=== PATIENT | female | born 1960 | race African-American/Black ===

== ENCOUNTER 2023-05-27 16:02 | Inpatient (IN) | payer OTHER ==
[2023-05-27 17:10] VITALS: BMI 16.1
[2023-05-27] MEDS ORDERED: guaiFENesin 600 MG TABLET.ER (FP) PO PRN (17:54)
[2023-05-27] MEDS ORDERED: LOPERAMIDE HCL 2 MG CAPSULE PO PRN (17:54)
[2023-05-27] MEDS ORDERED: NALOXONE HCL 0.4 MG/ML VIAL IM PRN (17:54)
[2023-05-27] MEDS ORDERED: MAG HYDROX/AL HYDROX/SIMETH 30 ML UNIT-DOSE CUP PO PRN (17:54)
[2023-05-27] MEDS ORDERED: DICYCLOMINE HCL 10 MG CAPSULE PO PRN (17:54)
[2023-05-27] MEDS ORDERED: BENZOCAINE/MENTHOL (CHLORASEPTIC ) LOZENGE MM PRN (17:54)
[2023-05-27] MEDS ORDERED: NICOTINE POLACRILEX 2 MG LOZENGE BC PRN (17:54)
[2023-05-27] MEDS ORDERED: MAGNESIUM HYDROX 2400MG/30ML ORAL SUSPENSION 30 ML CUP PO PRN (17:54)
[2023-05-27] MEDS ORDERED: ONDANSETRON *ODT* 4 MG TABLET SL PRN (17:54)
[2023-05-27] MEDS ORDERED: NALOXONE HCL (KLOXXADO) 8 MG SPRAY NS PRN (17:54)
[2023-05-27] MEDS ORDERED: BENZONATATE 200 MG CAPSULE PO PRN (17:54)
[2023-05-27] MEDS ORDERED: ACETAMINOPHEN 325 MG TABLET (FP) PO PRN (17:54)
[2023-05-27] MEDS ORDERED: POLYETHYLENE GLYCOL (HEALTHYLAX) 3350 17 GM PACKET PO PRN (17:54)
[2023-05-27] MEDS ORDERED: BISMUTH SUBSALICYLATE 524 MG/30 ML PO PRN (17:54)
[2023-05-27] MEDS ORDERED: IBUPROFEN 400 MG TABLET (FP) PO PRN (17:54)
[2023-05-27] MEDS ORDERED: IBUPROFEN 600 MG TABLET (FP) PO PRN (17:54)
[2023-05-27] MEDS: METHOCARBAMOL 500 MG TABLET PO PRN (22:28)
[2023-05-27] MEDS: MELATONIN 5 MG TABLETS PO SCH (22:28)
[2023-05-27] MEDS: THIAMINE HCL 100 MG TABLET (FP) PO SCH (22:28)
[2023-05-28] MEDS: ALBUTEROL SO4 HFA INHALER IH PRN ×3 (08:30→22:35)
[2023-05-28] MEDS ORDERED: diazePAM 5 MG TABLET PO PRN (08:59)
[2023-05-28] MEDS: PRENATAL VITAMINS W/ FOLIC ACID TABLET (FP) PO SCH (10:26)
[2023-05-28] MEDS: TIOTROPIUM BROMIDE 2.5 MCG (SPIRIVA) RESPIMAT INHALER IH SCH (10:27)
[2023-05-28] MEDS: diazePAM 5 MG TABLET PO SCH ×3 (10:28→22:34)
[2023-05-28 10:45] LABS: CHLORIDE 112 mmol/L (98-107); POTASSIUM 3.8 mmol/L (3.5-5.1); SODIUM 145 mmol/L (136-145)
[2023-05-28 10:53] LABS: HEMOGLOBIN 11.6 GM/dL (10.7-15.3); MCH 32.5 pg (25.7-33.7); MCHC 33.1 g/dl (32.0-36.0); MEAN CELL VOLUME 98.3 fl (80-96); MEAN PLT VOLUME 7.9 fl (7.5-11.1); PLATELET COUNT 322 10^3/uL (134-434); RBC 3.56 M/mm3 (3.60-5.2); RDW 13.6 % (11.6-15.6); WHITE BLOOD COUNT 4.2 K/mm3 (4.0-10.0)
[2023-05-28 10:58] LABS: ALBUMIN 3.2 g/dl (3.4-5.0); ANION GAP 6 mmol/L (4-13); BLOOD UREA NITROGEN 23.5 mg/dL (7-18); CALCIUM 9.3 mg/dL (8.5-10.1); CO2 28 mmol/L (21-32); GLUCOSE,RANDOM 105 mg/dL (74-106)
[2023-05-28 11:00] LABS: SGPT/ALT 25 U/L (13-61)
[2023-05-28 11:02] LABS: BILIRUBIN,TOTAL 0.5 mg/dL (0.2-1); CREATININE 0.6 mg/dL (0.55-1.3); SGOT/AST 29 U/L (15-37); TOT PROT 5.9 g/dl (6.4-8.2)
[2023-05-28 11:03] LABS: ALK PHOS 105 U/L (45-117)
[2023-05-28] MEDS: METHOCARBAMOL 500 MG TABLET PO PRN (20:10)
[2023-05-28] MEDS: THIAMINE HCL 100 MG TABLET (FP) PO SCH (22:31)
[2023-05-28] MEDS: MELATONIN 5 MG TABLETS PO SCH (22:31)
[2023-05-28] MEDS: hydrOXYzine PAMOATE 25 MG CAPSULE (FP) PO PRN (22:34)
[2023-05-29] MEDS: diazePAM 5 MG TABLET PO SCH ×4 (05:42→22:25)
[2023-05-29] MEDS: ALBUTEROL SO4 HFA INHALER IH PRN ×4 (05:44→22:24)
[2023-05-29] MEDS: PRENATAL VITAMINS W/ FOLIC ACID TABLET (FP) PO SCH (10:14)
[2023-05-29] MEDS: TIOTROPIUM BROMIDE 2.5 MCG (SPIRIVA) RESPIMAT INHALER IH SCH (10:15)
[2023-05-29] MEDS: ALBUTEROL SO4 2.5/IPRATROPIUM 0.5 INH SOL 3 ML VIAL.NEB. NEB SCH (19:45)
[2023-05-29] MEDS: THIAMINE HCL 100 MG TABLET (FP) PO SCH (22:25)
[2023-05-29] MEDS: MELATONIN 5 MG TABLETS PO SCH (22:25)
[2023-05-29] MEDS: METHOCARBAMOL 500 MG TABLET PO PRN (22:27)
[2023-05-30] MEDS: ALBUTEROL SO4 2.5/IPRATROPIUM 0.5 INH SOL 3 ML VIAL.NEB. NEB SCH ×3 (01:40→13:14)
[2023-05-30] MEDS: ALBUTEROL SO4 HFA INHALER IH PRN ×3 (02:00→22:22)
[2023-05-30] MEDS: diazePAM 5 MG TABLET PO SCH ×3 (05:51→22:23)
[2023-05-30] MEDS: PRENATAL VITAMINS W/ FOLIC ACID TABLET (FP) PO SCH (09:31)
[2023-05-30] MEDS: TIOTROPIUM BROMIDE 2.5 MCG (SPIRIVA) RESPIMAT INHALER IH SCH (09:31)
[2023-05-30] MEDS: THIAMINE HCL 100 MG TABLET (FP) PO SCH (22:22)
[2023-05-30] MEDS: MELATONIN 5 MG TABLETS PO SCH (22:23)
[2023-05-30] MEDS: METHOCARBAMOL 500 MG TABLET PO PRN (22:23)
[2023-05-31] MEDS: diazePAM 5 MG TABLET PO SCH ×2 (05:05→18:00)
[2023-05-31] MEDS: PRENATAL VITAMINS W/ FOLIC ACID TABLET (FP) PO SCH (09:34)
[2023-05-31] MEDS: TIOTROPIUM BROMIDE 2.5 MCG (SPIRIVA) RESPIMAT INHALER IH SCH (09:36)
[2023-05-31] MEDS ORDERED: SUVOREXANT 10 MG TABLET PO PRN (22:00)
[2023-05-31] MEDS: THIAMINE HCL 100 MG TABLET (FP) PO SCH (22:06)
[2023-05-31] MEDS: ALBUTEROL SO4 HFA INHALER IH PRN (22:07)
[2023-06-01] MEDS: METHOCARBAMOL 500 MG TABLET PO PRN (02:03)
[2023-06-01] MEDS: hydrOXYzine PAMOATE 25 MG CAPSULE (FP) PO PRN (02:03)
[2023-06-01] MEDS ORDERED: diazePAM 5 MG TABLET PO ONE (06:00)
[2023-06-01 09:49] VITALS: BP 123/75; PULSE 86; RESP 18; TEMP 97.5
[2023-06-01] MEDS: TIOTROPIUM BROMIDE 2.5 MCG (SPIRIVA) RESPIMAT INHALER IH SCH (10:24)
[2023-06-01] MEDS: PRENATAL VITAMINS W/ FOLIC ACID TABLET (FP) PO SCH (10:24)
== END 2023-06-01 12:10 | disposition other institution (70) | DRG 897 ==
LOC: YASAS 16:02 → Y6N 18:51
PROVIDERS: ADMIT Allergy & Immunology; ATTEND Allergy & Immunology
PROC: HZ2ZZZZ Detoxification Services for Substance Abuse Treatment (ICD-10-PCS; principal; 2023-05-27)
DX: F10.230 Alcohol dependence with withdrawal, uncomplicated (principal); F14.20 Cocaine dependence, uncomplicated; F19.282 Other psychoactive substance dependence with psychoactive substance-induced sleep disorder; F19.280 Other psychoactive substance dependence with psychoactive substance-induced anxiety disorder; F11.10 Opioid abuse, uncomplicated; F17.213 Nicotine dependence, cigarettes, with withdrawal; F19.24 Other psychoactive substance dependence with psychoactive substance-induced mood disorder; J44.9 Chronic obstructive pulmonary disease, unspecified; J45.20 Mild intermittent asthma, uncomplicated; Z62.810 Personal history of physical and sexual abuse in childhood; Z91.410 Personal history of adult physical and sexual abuse; Z86.19 Personal history of other infectious and parasitic diseases; Z85.528 Personal history of other malignant neoplasm of kidney; Z90.5 Acquired absence of kidney
CPT/HCPCS: 36415; 80053; 80307; 85027; 86593; 86780; 87635; 94640

== ENCOUNTER 2023-06-01 12:32 | Inpatient (IN) | payer OTHER ==
[2023-06-01] MEDS ORDERED: BENZONATATE 200 MG CAPSULE PO PRN (12:43)
[2023-06-01] MEDS ORDERED: LOPERAMIDE HCL 2 MG CAPSULE PO PRN (12:43)
[2023-06-01] MEDS ORDERED: MAG HYDROX/AL HYDROX/SIMETH 30 ML UNIT-DOSE CUP PO PRN (12:43)
[2023-06-01] MEDS ORDERED: MAGNESIUM HYDROX 2400MG/30ML ORAL SUSPENSION 30 ML CUP PO PRN (12:43)
[2023-06-01] MEDS ORDERED: guaiFENesin 600 MG TABLET.ER (FP) PO PRN (12:43)
[2023-06-01] MEDS ORDERED: POLYETHYLENE GLYCOL (HEALTHYLAX) 3350 17 GM PACKET PO PRN (12:43)
[2023-06-01] MEDS ORDERED: NICOTINE 7 MG/24 HOURS TOPICAL PATCH TD PRN (12:50)
[2023-06-01] MEDS ORDERED: NICOTINE POLACRILEX 2 MG GUM BUC PRN (12:51)
[2023-06-01] MEDS: ALBUTEROL SO4 HFA INHALER IH PRN (17:26)
[2023-06-01] MEDS: MELATONIN 5 MG TABLETS PO SCH (21:54)
[2023-06-01] MEDS: THIAMINE HCL 100 MG TABLET (FP) PO SCH (21:54)
[2023-06-01] MEDS ORDERED: TUBERCULIN PPD 5 TU/0.1ML VIAL ID ONE (23:51)
[2023-06-02] MEDS: PRENATAL VITAMINS W/ FOLIC ACID TABLET (FP) PO SCH (10:01)
[2023-06-02] MEDS: TIOTROPIUM BROMIDE 2.5 MCG (SPIRIVA) RESPIMAT INHALER IH SCH (10:01)
[2023-06-02] MEDS: ACETAMINOPHEN 325 MG TABLET (FP) PO PRN (10:04)
[2023-06-02] MEDS: METHOCARBAMOL 500 MG TABLET PO PRN (21:18)
[2023-06-03] MEDS ORDERED: LACTULOSE 20 GM/30 ML UDC (FOR ORAL USE ONLY) PO PRN (12:00)
[2023-06-03] MEDS ORDERED: LACTULOSE 20 GM/30 ML UDC (FOR ORAL USE ONLY) PO SCH (22:00)
[2023-06-04] MEDS: ALBUTEROL SO4 HFA INHALER IH PRN (00:45)
[2023-06-04] MEDS: IBUPROFEN 400 MG TABLET (FP) PO PRN (18:07)
[2023-06-05] MEDS: ALBUTEROL SO4 0.083% IH SOL 2.5 MG/3 ML VIAL.NEB. NEB PRN (02:38)
[2023-06-05] MEDS: NALTREXONE HCL 50 MG TABLET PO SCH (09:48)
[2023-06-06] MEDS: IBUPROFEN 600 MG TABLET (FP) PO PRN (09:55)
[2023-06-06] MEDS: NALTREXONE HCL 50 MG TABLET PO SCH (09:55)
[2023-06-08] MEDS: METHOCARBAMOL 500 MG TABLET PO PRN (14:28)
[2023-06-09] MEDS ORDERED: NALTREXONE MICROSPHERES (VIVITROL) 380 MG DISP.SYRIN IM ONE (10:00)
[2023-06-09] MEDS: NALTREXONE MICROSPHERES (VIVITROL) 380 MG DISP.SYRIN IM ONE (11:08)
[2023-06-10] MEDS: LACTULOSE 20 GM/30 ML UDC (FOR ORAL USE ONLY) PO SCH (21:19)
[2023-06-10] MEDS: METHYL SALICYLATE/MENTHOL OINT 30 GM TUBE TP PRN (21:22)
[2023-06-11] MEDS: hydrOXYzine PAMOATE 25 MG CAPSULE (FP) PO PRN (14:27)
[2023-06-11] MEDS: MELATONIN 5 MG TABLETS PO SCH (21:31)
[2023-06-12] MEDS: ALBUTEROL SO4 0.083% IH SOL 2.5 MG/3 ML VIAL.NEB. NEB PRN (22:58)
[2023-06-14] MEDS: BUDESONIDE/FORMETEROL FUMARATE 160/4.5 mcg INHALER IH SCH (21:12)
[2023-06-15 06:53] VITALS: RESP 18
[2023-06-15] MEDS: valACYclovir HCL 500 MG TABLET (FP) PO SCH (09:38)
[2023-06-16] MEDS: guaiFENesin 600 MG TABLET.ER (FP) PO SCH (13:21)
[2023-06-17 13:10] LABS: HIV INTERPRETATION NEGATIVE (NEGATIVE)
[2023-06-19] MEDS: BENZOCAINE/MENTHOL (CHLORASEPTIC ) LOZENGE MM PRN (19:37)
[2023-06-21] MEDS: AZITHROMYCIN 250 MG TABLET PO ONE (14:30)
[2023-06-21] MEDS: BUDESONIDE/FORMETEROL FUMARATE 160/4.5 mcg INHALER IH SCH (21:23)
[2023-06-21] MEDS ORDERED: BUDESONIDE/FORMETEROL FUMARATE 160/4.5 mcg INHALER IH SCH (22:00)
[2023-06-22] MEDS: AZITHROMYCIN 250 MG TABLET PO SCH (09:57)
[2023-06-24 06:55] VITALS: TEMP 97.3
[2023-06-24 11:05] VITALS: BP 132/77; PULSE 84
== END 2023-06-24 10:30 | disposition other institution (70) | DRG 895 ==
LOC: YASAS 12:32 → Y5N 12:35
PROVIDERS: ADMIT Allergy & Immunology; ATTEND Psychiatry & Neurology Pain Medicine
PROC: HZ42ZZZ Group Counseling for Substance Abuse Treatment, Cognitive-Behavioral (ICD-10-PCS; principal; 2023-06-01)
DX: F10.20 Alcohol dependence, uncomplicated (principal); F14.20 Cocaine dependence, uncomplicated; E72.20 Disorder of urea cycle metabolism, unspecified; J98.11 Atelectasis; F11.10 Opioid abuse, uncomplicated; F17.210 Nicotine dependence, cigarettes, uncomplicated; G47.00 Insomnia, unspecified; J45.909 Unspecified asthma, uncomplicated; S43.002A Unspecified subluxation of left shoulder joint, initial encounter; W19.XXXA Unspecified fall, initial encounter; Y93.89 Activity, other specified; Y92.89 Other specified places as the place of occurrence of the external cause; Y99.8 Other external cause status; Z85.528 Personal history of other malignant neoplasm of kidney
CPT/HCPCS: 0241U-QW; 36415; 71046-TC-FY; 82140; 86803; 87389; 87635; 93005; 93010; 94640; J2315